=== PATIENT | female | born 1960 | race Caucasian/White ===

== ENCOUNTER → 2017-04-14 | Outpatient (CLI) | payer OTHER ==
[~2017-04-14] MED LIST: ALBU90OI61 INH; ASPI81EC; ATOR20 PO; AZIT250; BUPR150T2; CITA20 PO; CLOT10 SS; Cartia Xt240 MG PO; Cipro500 MG PO; DILT180 PO; DOCU100 PO; Duoneb 2.5-0.5 M3 ML INH; ESOM20; ESOM20 PO; ESTR.625; ESTR.9; FAMO20 PO; FLONASE ALLERG9.9 ML; FLUSAL1005 INH; FLUSAL2505 IH; FLUT1DIS5 INH; Flagyl500 MG PO; Flomax0.4 MG PO; GREEN TEA; GUAI600T33 PO; HERBAL SUPPLEMENTS; HYDACE5; HYDACE5325 PO; HYDMOR2 PO; HYDR1TAB94 PO; IBUP600 PO; IBUP800 PO; LEVFLO500 PO; LORA10 PO; MECL12.5 PO; METO100ER PO; METO50ER PO; METR500 PO; MORP15ER PO; Motion Sickness25 M1 PO; Mucinex600 MG PO; NASAL SPRAY; NITR.4SL SL; Neurontin 300300 MG PO; OMEP10ER PO; OMEP40CA12 PO; OXYACE5T PO; Omeprazole20 M1 PO; PRED20; PRED20 PO; PROACE100; PROM25 PO; Phenergan25 M1 PO; Prednisone20 MG PO; SUMA25 PO; TETR250 PO; TIOT18 IH; TIOT18 INH; TRAM50 PO; VARE1 PO; VICKS VAPORUB O50 GM TOP; Zithromax250 MG PO; Zofran Odt4 MG SL; Zofran4 MG PO; [UNRECOGNIZED DRUG - OTHER]; [UNRECOGNIZED DRUG - OTHER]
== END | disposition home or self-care (01) ==
LOC: LAB SHORT 07:51 → PLD 07:51
DX: D22.5 Melanocytic nevi of trunk (principal)
CPT/HCPCS: 88305

== ENCOUNTER 2017-05-05 05:45 | Inpatient (IN) | payer OTHER ==
[~2017-05-05] VITALS: Ht 160 cm; Wt 86.2 kg
[~2017-05-05 05:45] MED LIST changes: -MORP15ER PO
[2017-05-06 04:58] LABS: BASOPHILS ABSOLUTE AUTO 0.03 K/mm3 (0.00-0.23); BASOPHILS PERCENT AUTO 0 % (0-2); EOSINOPHILS PERCENT AUTO 0 % (0-6); Hematocrit 38.8 % (33.0-51.0); Hemoglobin 12.4 g/dL (11.5-16.0); IMMATURE GRAN PERCENT AUTO 1 % (0-1); LYMPHOCYTES ABSOLUTE AUTO 1.31 K/mm3 (0.84-5.20); LYMPHOCYTES PERCENT AUTO 8 % (21-46); MONOCYTES ABSOLUTE AUTO 0.82 K/mm3 (0.16-1.47); MONOCYTES PERCENT AUTO 5 % (4-13); Mean Corpuscular HGB 29.7 pg (26.0-34.0); Mean Corpuscular Volume 93 fL (80-100); Mean Platelet Volume 9.2 fL (9.1-12.4); NEUTROPHILS ABSOLUTE AUTO 14.13 K/mm3 (1.96-9.15); NEUTROPHILS PERCENT AUTO 86 % (41-73); Platelet Count 251 K/mm3 (150-400); RDW Coefficient Variation 12.4 % (11.7-14.2); RDW Standard Deviation 42.6 fL (35.1-46.3); Red Blood Cell Count 4.17 M/mm3 (3.80-5.20); White Blood Cell Count 16.39 K/mm3 (4.00-11.30)
[2017-05-06 05:28] LABS: Anion Gap 8 mmol/L (6-16); Blood Urea Nitrogen 11 mg/dL (8-24); Bun/Creatinine Ratio 14.6 (12.0-20.0); CO2, Blood 24 mmol/L (21-32); Calcium, Blood 8.2 mg/dL (8.5-10.1); Chloride, Blood 108 mmol/L (98-108); Creatinine, Blood 0.75 mg/dL (0.40-1.00); Glomerular Filtration Rate >60 (60-); Glucose, Blood 139 mg/dL (70-99); Potassium, Blood 3.9 mmol/L (3.5-5.5); Sodium, Blood 140 mmol/L (136-145)
[2017-05-09] MEDS ORDERED: MORP15ER PO (15:36)
== END 2017-05-09 16:20 | disposition home or self-care (01) | DRG 330 ==
LOC: SURS 05:45
PROVIDERS: Surgery
PROC: 0DNU0ZZ Release Omentum, Open Approach (ICD-10-PCS; 2017-05-05)
PROC: 0DNW0ZZ Release Peritoneum, Open Approach (ICD-10-PCS; 2017-05-05)
PROC: 0DBN0ZZ Excision of Sigmoid Colon, Open Approach (ICD-10-PCS; principal; 2017-05-05 07:30)
DX: K57.20 Diverticulitis of large intestine with perforation and abscess without bleeding (principal); D22.9 Melanocytic nevi, unspecified; F17.200 Nicotine dependence, unspecified, uncomplicated; F32.9 Major depressive disorder, single episode, unspecified; J44.9 Chronic obstructive pulmonary disease, unspecified; K66.0 Peritoneal adhesions (postprocedural) (postinfection); N39.46 Mixed incontinence; Z79.899 Other long term (current) drug therapy; Z88.1 Allergy status to other antibiotic agents; Z88.5 Allergy status to narcotic agent; Z88.0 Allergy status to penicillin; Z88.2 Allergy status to sulfonamides; Z88.8 Allergy status to other drugs, medicaments and biological substances
CPT/HCPCS: 36415; 80048; 85025; 88307; 94640; 94760; C1762; J1100; J1580; J1650; J1885; J2405; J2550; J2710; J2765; J3010; J7050; J7120

== ENCOUNTER 2018-06-29 02:49 | Emergency (ER) | payer OTHER ==
[~2018-06-29] VITALS: Ht 160 cm; Wt 90.7 kg
[~2018-06-29 02:49] MED LIST changes: +MORP15ER PO
[2018-06-29] MEDS ORDERED: Prednisone20 MG PO (04:15)
[2018-06-29] MEDS ORDERED: EPIPEN0.3 MG/0.3 IM (04:15)
== END 2018-06-29 05:55 | disposition home or self-care (01) ==
LOC: ER 02:49
DX: T78.2XXA Anaphylactic shock, unspecified, initial encounter (principal); J44.9 Chronic obstructive pulmonary disease, unspecified; I10 Essential (primary) hypertension; F17.210 Nicotine dependence, cigarettes, uncomplicated; Z88.8 Allergy status to other drugs, medicaments and biological substances; Z88.0 Allergy status to penicillin; Z88.2 Allergy status to sulfonamides; Z91.048 Other nonmedicinal substance allergy status; Z88.5 Allergy status to narcotic agent; Z91.040 Latex allergy status; Z88.1 Allergy status to other antibiotic agents; Z79.899 Other long term (current) drug therapy
CPT/HCPCS: 36415; 94640; 96361; 96372-59; 96374; 96375; 99285-25; J0171; J1200; J2930; J7030

== ENCOUNTER 2019-01-11 18:59 | Emergency (ER) | payer OTHER ==
[~2019-01-11] VITALS: Ht 160 cm; Wt 84.8 kg
[~2019-01-11 18:59] MED LIST changes: +EPIPEN0.3 MG/0.3 IM
[2019-01-11 19:48] LABS: BASOPHILS ABSOLUTE AUTO 0.04 K/mm3 (0.00-0.23); BASOPHILS PERCENT AUTO 0 % (0-2); EOSINOPHILS ABSOLUTE AUTO 0.29 K/mm3 (0.00-0.68); EOSINOPHILS PERCENT AUTO 3 % (0-6); Hematocrit 45.9 % (33.0-51.0); Hemoglobin 15.2 g/dL (11.5-16.0); IMMATURE GRAN ABSOLUTE AUTO 0.02 K/mm3 (0.00-0.10); IMMATURE GRAN PERCENT AUTO 0 % (0-1); LYMPHOCYTES ABSOLUTE AUTO 2.84 K/mm3 (0.84-5.20); LYMPHOCYTES PERCENT AUTO 29 % (21-46); MONOCYTES ABSOLUTE AUTO 0.61 K/mm3 (0.16-1.47); MONOCYTES PERCENT AUTO 6 % (4-13); Mean Corpuscular HGB 31.2 pg (26.0-34.0); Mean Corpuscular HGB Conc 33.1 g/dL (31.5-36.5); Mean Corpuscular Volume 94 fL (80-100); Mean Platelet Volume 8.9 fL (9.1-12.4); NEUTROPHILS ABSOLUTE AUTO 6.11 K/mm3 (1.96-9.15); NEUTROPHILS PERCENT AUTO 62 % (41-73); Platelet Count 292 K/mm3 (150-400); RDW Coefficient Variation 12.8 % (11.7-14.2); RDW Standard Deviation 44.1 fL (35.1-46.3); Red Blood Cell Count 4.87 M/mm3 (3.80-5.20); White Blood Cell Count 9.91 K/mm3 (4.00-11.30)
[2019-01-11 20:12] LABS: Alanine Aminotransfer (ALT/SGP 18 U/L (12-78); Albumin, Blood 3.6 g/dL (3.4-5.0); Alk Phos 116 U/L (50-136); Anion Gap 6 mmol/L (6-16); Aspartate Aminotrans (AST/SGOT 16 U/L (12-37); Bilirubin, Total 0.3 mg/dL (0.1-1.0); Blood Urea Nitrogen 13 mg/dL (8-24); Bun/Creatinine Ratio 15.2 (12.0-20.0); CO2, Blood 26 mmol/L (21-32); Calcium, Blood 8.5 mg/dL (8.5-10.1); Chloride, Blood 108 mmol/L (98-108); Creatinine, Blood 0.85 mg/dL (0.40-1.00); Globulin, Blood 3.5 g/dL (2.2-4.0); Glomerular Filtration Rate >60 (60-); Glucose, Blood 124 mg/dL (70-99); Potassium, Blood 3.9 mmol/L (3.5-5.5); Sodium, Blood 140 mmol/L (136-145); Total Protein, Blood 7.1 g/dL (6.4-8.2); Troponin I <0.015 ng/mL (0.000-0.040)
[2019-01-11] MEDS ORDERED: Prednisone20 MG PO (22:36)
[2019-01-11] MEDS ORDERED: Zantac150 MG PO (22:47)
== END 2019-01-11 22:48 | disposition home or self-care (01) ==
LOC: ER 18:59
PROVIDERS: Physician Assistant
DX: J44.1 Chronic obstructive pulmonary disease with (acute) exacerbation (principal); I10 Essential (primary) hypertension; F17.210 Nicotine dependence, cigarettes, uncomplicated; Z88.8 Allergy status to other drugs, medicaments and biological substances; Z88.0 Allergy status to penicillin; Z88.2 Allergy status to sulfonamides; Z91.048 Other nonmedicinal substance allergy status; Z88.6 Allergy status to analgesic agent; Z88.1 Allergy status to other antibiotic agents; Z88.5 Allergy status to narcotic agent; Z79.899 Other long term (current) drug therapy; Z79.51 Long term (current) use of inhaled steroids
CPT/HCPCS: 36415; 71046; 80053; 84484; 85025; 93005; 93010; 99284-25

== ENCOUNTER → 2019-01-26 | Outpatient (CLI) | payer OTHER ==
[~2019-01-26] MED LIST changes: +Zantac150 MG PO
== END | disposition home or self-care (01) ==
LOC: PLD 13:47 → LAB SHORT 13:47
DX: D48.5 Neoplasm of uncertain behavior of skin (principal); D22.5 Melanocytic nevi of trunk
CPT/HCPCS: 88305

== ENCOUNTER 2020-08-17 17:57 | Emergency (ER) | payer OTHER ==
[~2020-08-17] VITALS: Ht 160 cm; Wt 91.2 kg
[2020-08-17] MEDS ORDERED: NEOPOLHCSU RIGHTEAR (19:20)
== END 2020-08-17 19:24 | disposition home or self-care (01) ==
LOC: ER 17:57
DX: M71.21 Synovial cyst of popliteal space [Baker], right knee (principal); H60.91 Unspecified otitis externa, right ear; J44.9 Chronic obstructive pulmonary disease, unspecified; I10 Essential (primary) hypertension; F17.210 Nicotine dependence, cigarettes, uncomplicated; Z79.899 Other long term (current) drug therapy
CPT/HCPCS: 93971; 99283-25